=== PATIENT | female | born 1990 | race Caucasian/White ===

== ENCOUNTER 2017-09-16 12:52 | Emergency (ER) | payer MEDICAID ==
--- NOTE | 2017-09-16 13:30 | EDM.PDOC ---
ED HPI GENERAL MEDICAL PROBLEM - General Chief Complaint: General Stated Complaint: WITHDRAWAL FROM MEDS Time Seen by Provider: 09/16/17 13:27 Source of Information: Reports: Patient - History of Present Illness INITIAL COMMENTS - FREE TEXT/NARRATIVE: HISTORY AND PHYSICAL: History of present illness: [Patient presents with mild withdrawal from methadone She was getting methadone through a clinic in [facility], she decided to move to [place] and stop the methadone cold turkey to get off of it. He stopped one week prior she is having some mild tremor and anxious feelings no nausea vomiting chills sweats diarrhea or salivation. She has been looking at some options of Suboxone with a slow taper but has [place] Medicaid so will be following up Monday to pursue that through [facility]/ [facility] as her insurance does not cover her [place] Currently no fever nausea vomiting chills sweats no chest pain shortness breath headache dizziness palpitation no bowel or urine symptoms Patient is cooperative and pleasant at current ] Review of systems: As per history of present illness and below otherwise all systems reviewed and negative. Past medical history: As per history of present illness and as reviewed below otherwise noncontributory. Surgical history: As per history of present illness and as reviewed below otherwise noncontributory. Social history: No reported history of drug or alcohol abuse. Family history: As per history of present illness and as reviewed below otherwise noncontributory. Physical exam: HEENT: Atraumatic, normocephalic, pupils reactive, negative for conjunctival pallor or scleral icterus, mucous membranes moist, throat clear, neck supple, nontender, trachea midline. Lungs: Clear to auscultation, breath sounds equal bilaterally, chest nontender. Heart: S1S2, regular, negative for clicks, rubs, or JVD. Abdomen: Soft, nondistended, nontender. Negative for masses or hepatosplenomegaly. Negative for costovertebral tenderness. Pelvis: Stable nontender. Genitourinary: Deferred. Rectal: Deferred. Extremities: Atraumatic, negative for cords or calf pain. Neurovascular unremarkable. Neuro: Awake, alert, oriented. Cranial nerves II through XII unremarkable. Cerebellum unremarkable. Motor and sensory unremarkable throughout. Exam nonfocal. Diagnostics: [] Therapeutics: []Ativan 1 mg by mouth twice a day when necessary #10 no refill Impression: []Mild methadone withdrawal symptoms History of substance abuse Definitive disposition and diagnosis as appropriate pending reevaluation and review of above. 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 ED EXAM, GENERAL - Physical Exam Exam: See Below Course - Vital Signs Last Recorded V/S: Last Vital Signs Temp 98.6 F 09/16/17 13:15 Pulse 89 09/16/17 13:15 Resp 16 09/16/17 13:15 BP 111/73 09/16/17 13:15 Pulse Ox 98 09/16/17 13:15 Departure - Departure Time of Disposition: 13:29 Disposition: Home, Self-Care 01 Condition: Good Clinical Impression: Withdrawal symptoms, drug or narcotic - Discharge Information Referrals: PCP,None [Primary Care Provider] - Additional Instructions: Medication as prescribed Return if symptoms persist or worsen or new concerning symptoms develop Follow-up with [facility] is discussed on Monday The following information is given to patients seen in the emergency department who are being discharged to home. This information is to outline your options for follow-up care. We provide all patients seen in our emergency department with a follow-up referral. The need for follow-up, as well as the timing and circumstances, are variable depending upon the specifics of your emergency department visit. If you don't have a primary care physician on staff, we will provide you with a referral. We always advise you to contact your personal physician following an emergency department visit to inform them of the circumstance of the visit and for follow-up with them and/or the need for any referrals to a consulting specialist. The emergency department will also refer you to a specialist when appropriate. This referral assures that you have the opportunity for follow-up care with a specialist. All of these measure are taken in an effort to provide you with optimal care, which includes your follow-up. Under all circumstances we always encourage you to contact your private physician who remains a resource for coordinating your care. When calling for follow-up care, please make the office aware that this follow-up is from your recent emergency room visit. If for any reason you are refused follow-up, please contact the [facility] emergency department at and asked to speak to the emergency department charge nurse.
== END 2017-09-16 13:56 | disposition home or self-care (01) ==
LOC: MW.ED 12:52
DX: F11.23 Opioid dependence with withdrawal (principal); I10 Essential (primary) hypertension; Z88.1 Allergy status to other antibiotic agents; Z88.5 Allergy status to narcotic agent; Z88.0 Allergy status to penicillin
CPT/HCPCS: 99282

== ENCOUNTER 2017-11-29 16:25 | Emergency (ER) | payer MEDICAID ==
[2017-11-29] MEDS ORDERED: Famotidine 20 MG/2 ML SDV IVPUSH ONE (16:49)
[2017-11-29] MEDS ORDERED: Sodium Chloride 0.9% 2.5 ML Syringe FLUSH PRN (16:49)
[2017-11-29] MEDS ORDERED: Sodium Chloride 0.9% 10 ML Syringe FLUSH PRN (16:49)
--- NOTE | 2017-11-29 17:58 | EDM.PDOC ---
ED HPI GENERAL MEDICAL PROBLEM - General Chief Complaint: Gastrointestinal Problem Stated Complaint: VOMITING BLOOD Time Seen by Provider: 11/29/17 16:35 Source of Information: Reports: Patient History Limitations: Reports: No Limitations - History of Present Illness INITIAL COMMENTS - FREE TEXT/NARRATIVE: HISTORY AND PHYSICAL: []27-year-old female presenting with emesis 2 second emesis had some blood streaking History of Present Illness: []Dark red blood noted in the toilet with emesis Review of Systems: As per history of present illness and below otherwise all systems reviewed and negative. Past medical history: As per history of present illness and as reviewed below otherwise noncontributory. Surgical history: As per history of present illness and as reviewed below otherwise noncontributory. Social history: No reported history of drug or alcohol abuse. Family history: As per history of present illness and as reviewed below otherwise noncontributory. Physical exam: Alert and oriented female answering questions appropriately. No shortness of breath noted with speaking in full sentences. HEENT: Atraumatic, normocehpalic, pupils reactive, negative for conjunctival pallor or scleral icterus, mucous membranes moist, throat clear, neck supple, nontender, trachea midline. Lungs: Clear to auscultation, breath sounds equal bilaterally, chest non tender. Heart: S1S2, regular, negative for clicks, rubs, or JVD. Abdomen: Soft, nondistended, nontender. Negative for masses or hepatossplenmegaly. Negative for costovertebral tenderness. Pelvis: Stable nontender. Genitourinary: Deferred. Rectal: Deferred Extremities: Atraumatic, negative for cords or calf pain. Neurovascular unremarkable. Neuro: Awake, alert, oriented. Cranial nerves II through XII unremarkable. Cerebellum unremarkable. Motor and sensory unremarkable throughout. Exam nonfocal. Diagnostics: [CBC CMP flat and upright] Therapeutics: [] Impression: [] Plan: [] Definitive disposition and diagnosis as appropriate pending reevaluation and review of above. Onset: Today, Sudden Duration: Hour(s): Location: Reports: Abdomen Quality: Reports: Burning Severity: Mild Improves with: Reports: None Worsens with: Reports: None - Related Data Allergies Allergy/AdvReac Type Severity Reaction Status Date / Time clindamycin Allergy Anaphylactic Verified 11/29/17 16:36 Shock codeine Allergy Anaphylactic Verified 11/29/17 16:36 Shock Penicillins Allergy Anaphylactic Verified 11/29/17 16:36 Shock Home Meds: Home Meds FLUoxetine [PROzac] 40 mg PO DAILY 09/16/17 [History] Gabapentin [Neurontin] 600 mg PO QID 09/16/17 [History] cloNIDine [Catapres] 0.2 mg PO DAILY 09/16/17 [History] traZODone 150 mg PO ONETIME 09/16/17 [History] Buprenorphine HCl/Naloxone HCl [Suboxone 12 mg-3 mg Sl Film] 12 mg PO DAILY [History] Dextroamphetamine/Amphetamine [Adderall 20 mg Tablet] 40 mg PO DAILY 11/29/17 [ History] Past Medical History Cardiovascular History: Reports: Hypertension, Other (See Below) Other Cardiovascular History: Adrenalin Disorder 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 Neurological History: Reports: Neuropathy, Peripheral, Seizure Psychiatric History: Reports: Addiction, Other (See Below) Other Psychiatric History: insomnia - Past Surgical History HEENT Surgical History: Reports: Adenoidectomy, Tonsillectomy GI Surgical History: Reports: Cholecystectomy Other Female Surgeries/Procedures: endometriosis Neurological Surgical History: Reports: None Social & Family History - Family History Family Medical History: Noncontributory - Tobacco Use Smoking Status *Q: Current Every Day Smoker Years of Tobacco use: 10 Packs/Tins Daily: 0.5 - Caffeine Use Caffeine Use: Reports: Tea - Recreational Drug Use Recreational Drug Use: No ED ROS GENERAL - Review of Systems Review Of Systems: ROS reveals no pertinent complaints other than HPI. ED EXAM, GI/ABD - Physical Exam Exam: See Below (See dictation) Course - Vital Signs Last Recorded V/S: Last Vital Signs Temp 35.3 C 11/29/17 16:32 Pulse 71 11/29/17 16:32 Resp 16 11/29/17 16:32 BP 118/74 11/29/17 16:32 Pulse Ox 100 11/29/17 16:32 - Orders/Labs/Meds Orders: Active Orders 24 hr Category Date Time Status EKG Documentation Completion [RC] STAT Care 11/29/17 16:49 Active CBC WITH AUTO DIFF [HEME] Stat Lab 11/29/17 16:49 Ordered COMPREHENSIVE METABOLIC PN,CMP [CHEM] Stat Lab 11/29/17 16:49 Ordered Saline Lock Insert [OM.PC] Stat Oth 11/29/17 16:49 Ordered Meds: Medications Discontinued Medications Generic Name Dose Route Start Last Admin Trade Name Freq PRN Reason Stop Dose Admin Famotidine 20 mg 11/29/17 16:49 Pepcid IVPUSH 11/29/17 16:50 ONETIME ONE Sodium Chloride 10 ml 11/29/17 16:49 Saline Flush FLUSH ASDIRECTED PRN Keep Vein Open Sodium Chloride 2.5 ml 11/29/17 16:49 Saline Flush FLUSH ASDIRECTED PRN Keep Vein Open Departure - Departure Time of Disposition: 17:20 Disposition: Eloped 07 Condition: Good Clinical Impression: Hematemesis with nausea - Discharge Information Referrals: PCP,None [Primary Care Provider] - Forms: ED Department Discharge - My Orders Last 24 Hours: My Active Orders 11/29/17 16:49 EKG Documentation Completion [RC] STAT CBC WITH AUTO DIFF [HEME] Stat COMPREHENSIVE METABOLIC PN,CMP [CHEM] Stat Saline Lock Insert [OM.PC] Stat - Assessment/Plan Last 24 Hours: My Active Orders 11/29/17 16:49 EKG Documentation Completion [RC] STAT CBC WITH AUTO DIFF [HEME] Stat COMPREHENSIVE METABOLIC PN,CMP [CHEM] Stat Saline Lock Insert [OM.PC] Stat
== END 2017-11-29 17:20 | disposition left against medical advice (07) ==
LOC: MW.ED 16:25
DX: K92.0 Hematemesis (principal); I10 Essential (primary) hypertension; F17.210 Nicotine dependence, cigarettes, uncomplicated; Z88.1 Allergy status to other antibiotic agents; Z88.5 Allergy status to narcotic agent; Z88.0 Allergy status to penicillin; Z79.899 Other long term (current) drug therapy
CPT/HCPCS: 99282